=== PATIENT | male | born 1955 | race Asian ===

== ENCOUNTER 2019-04-01 08:47 | Day surgery (SDC) | payer OTHER ==
[~2019-04-01] VITALS: Ht 165.1 cm; Wt 74.8 kg
[2019-04-01] MEDS ORDERED: MIDAZOLAM 2 MG/2 ML VIAL IVP ONE (10:50)
[2019-04-01] MEDS ORDERED: fentaNYL 0.05 MG/ML VIAL IVP ONE (10:52)
[2019-04-01] MEDS ORDERED: MIDAZOLAM 2 MG/2 ML VIAL ONE (11:41)
[2019-04-01] MEDS ORDERED: fentaNYL 0.05 MG/ML VIAL ONE (11:42)
[2019-04-01] MEDS ORDERED: LIDOCAINE 2% 100 MG/5 ML UJET TP ONE (11:42)
== END 2019-04-01 12:55 | disposition home or self-care (01) ==
LOC: MDS 08:47 → MMU 08:50 → MDS 12:55
PROVIDERS: ATTEND Internal Medicine Gastroenterology
DX: Z12.11 Encounter for screening for malignant neoplasm of colon (principal); D12.3 Benign neoplasm of transverse colon; D12.4 Benign neoplasm of descending colon; D12.5 Benign neoplasm of sigmoid colon; K57.30 Diverticulosis of large intestine without perforation or abscess without bleeding; F17.210 Nicotine dependence, cigarettes, uncomplicated; Z79.899 Other long term (current) drug therapy
CPT/HCPCS: 45381; 45385; J2250; J3010